=== PATIENT | male | born 1940 | race Caucasian/White ===

== ENCOUNTER 2020-02-20 16:59 | Emergency (ER) | payer MEDICARE, OTHER ==
[2020-02-20 18:29] VITALS: PULSE 65
[2020-02-20 18:39] VITALS: BP 156/92
--- NOTE | 2020-02-20 19:55 | EDM.PDOC ---
ED HPI GENERAL MEDICAL PROBLEM - General Chief Complaint: Abdominal Pain Stated Complaint: BLACK STOOL SEVRE STOMACHE PAINS Time Seen by Provider: 02/20/20 19:00 Source of Information: Reports: Patient, RN, RN Notes Reviewed History Limitations: Reports: No Limitations - History of Present Illness INITIAL COMMENTS - FREE TEXT/NARRATIVE: Patient presents to ER with complaint of abdominal pain for the past 2 weeks. Patient states he feels as though he is bloating and sharp pains from time to time in the epigastric region. Patient states on Thursday he began having black in stools. Patient states he has been using Pepto-Bismol for the bloating in the stomach, which causes him to have diarrhea from time to time. Patient denies any previous health problems although has had gastritis in the past. Patient denies any medications on a daily basis other than an Ocuvite. Patient denies any alcohol intake. Denies nausea or vomiting, chest pains or shortness of breath, fever or chills. Onset: Gradual Abdominal Pain Score (Numeric/FACES): 5 - Related Data Allergies Allergy/AdvReac Type Severity Reaction Status Date / Time No Known Allergies Allergy Verified 02/20/20 18:29 Home Meds: Home Meds Multivitamin [Multi-Day Vitamins] 1 tab PO DAILY 05/26/16 [History] Past Medical History HEENT History: Reports: Glaucoma, Impaired Vision Other HEENT History: wears glasses Cardiovascular History: Reports: High Cholesterol, Hypertension Respiratory History: Reports: None Gastrointestinal History: Reports: Diverticulosis, Helicobacter Pylori, PUD Other Gastrointestinal History: COLONIC HYPERPLASTIC POLYPS Genitourinary History: Reports: Renal Calculus Other Genitourinary History: ED Musculoskeletal History: Reports: Arthritis Neurological History: Reports: None Psychiatric History: Reports: None Endocrine/Metabolic History: Reports: None Hematologic History: Reports: None Immunologic History: Reports: None Oncologic (Cancer) History: Reports: None Dermatologic History: Reports: None - Infectious Disease History Infectious Disease History: Reports: Chicken Pox, Measles, Mumps - Past Surgical History Head Surgeries/Procedures: Reports: None HEENT Surgical History: Reports: None Male Surgical History: Reports: Lithotripsy ([facility]) Social & Family History - Family History HEENT: Reports: None Cardiac: Reports: DC Respiratory: Reports: None GI: Reports: None : Reports: None Musculoskeletal: Reports: None Neurological: Reports: CVA Endocrine/Metabolic: Reports: Diabetes, type II Hematologic: Reports: None Immunologic: Reports: None - Tobacco Use Smoking Status *Q: Never Smoker Second Hand Smoke Exposure: No - Caffeine Use Caffeine Use: Reports: Coffee, Soda - Recreational Drug Use Recreational Drug Use: No ED ROS GENERAL - Review of Systems Review Of Systems: Comprehensive ROS is negative, except as noted in HPI. ED EXAM, GI/ABD - Physical Exam Exam: See Below Exam Limited By: No Limitations General Appearance: Alert, WD/WN, No Apparent Distress Eyes: Bilateral: Normal Appearance, EOMI Ears: Normal External Exam, Hearing Grossly Normal Nose: Normal Inspection Throat/Mouth: Normal Inspection, Normal Voice, No Airway Compromise Head: Atraumatic, Normocephalic Neck: Normal Inspection, Supple, Non-Tender, Full Range of Motion Respiratory/Chest: No Respiratory Distress, Lungs Clear, Normal Breath Sounds, No Accessory Muscle Use, Chest Non-Tender Cardiovascular: Normal Peripheral Pulses, Regular Rate, Rhythm, No Edema, No Gallop, No JVD, No Murmur, No Rub GI/Abdominal Exam: Normal Bowel Sounds, Soft, No Organomegaly, No Distention, No Abnormal Bruit, No Mass, Pelvis Stable, Tender (Male) Exam: Deferred Rectal (Males) Exam: Deferred Back Exam: Normal Inspection, Full Range of Motion, NT Extremities: Normal Inspection, Normal Range of Motion, Non-Tender, Normal Capillary Refill, No Pedal Edema Neurological: Alert, Oriented, CN II-XII Intact, Normal Cognition, Normal Gait, Normal Reflexes, No Motor/Sensory Deficits Psychiatric: Normal Affect, Normal Mood Skin Exam: Warm, Dry, Intact, Normal Color, No Rash Lymphatic: No Adenopathy Course - Vital Signs Last Recorded V/S: Last Vital Signs Temp 97.8 F 02/20/20 18:20 Pulse 65 02/20/20 18:20 Resp 16 02/20/20 18:20 BP 156/92 H 02/20/20 18:39 Pulse Ox 97 02/20/20 18:20 - Orders/Labs/Meds Labs: Laboratory Tests 02/20/20 02/20/20 Range/Units 18:41 18:41 WBC 12.0 H (5.0-10.0) 10^3/uL RBC 4.95 (4.6-6.2) 10^6/uL Hgb 14.8 (14.0-18.0) g/dL Hct 43.3 (40.0-54.0) % MCV 87.5 (80-100) fL MCH 29.9 (27.0-34.0) pg MCHC 34.2 (33.0-35.0) g/dL Plt Count 217 (150-450) 10^3/uL Neut % (Auto) 62.6 (42.2-75.2) % Lymph % (Auto) 24.7 (20.5-50.1) % [place] % (Auto) 10.6 H (2-8) % Eos % (Auto) 1.8 (1.0-3.0) % Baso % (Auto) 0.3 (0.0-1.0) % Sodium 139 (136-145) mmol/L Potassium 4.3 (3.5-5.1) mmol/L Chloride 100 (98-107) mmol/L Carbon Dioxide 32 (21-32) mmol/L Anion Gap 11.3 (7-13) mEq/L BUN 22 H (7-18) mg/dL Creatinine 1.45 H (0.70-1.30) mg/dL Est Cr Clr Drug Dosing 33.92 mL/min Estimated GFR (MDRD) 47 BUN/Creatinine Ratio 15.2 (No establ ref range) Glucose 95 (74-99) mg/dL Calcium 9.8 (8.5-10.1) mg/dL Total Bilirubin 0.4 (0.2-1.0) mg/dL AST 23 (15-37) U/L ALT 35 (16-63) U/L Alkaline Phosphatase 57 (46-116) U/L Total Protein 7.1 (6.4-8.2) g/dL Albumin 3.6 (3.4-5.0) g/dL Globulin 3.5 Albumin/Globulin Ratio 1.0 Stool for Occult blood: POSITIVE Meds: Medications Discontinued Medications Generic Name Dose Route Start Last Admin Trade Name Freq PRN Reason Stop Dose Admin Pantoprazole Sodium 80 mg 02/20/20 20:04 02/20/20 20:26 Protonix Iv IVPUSH 02/20/20 20:05 80 mg .BOLUS ONE Administration - Re-Assessments/Exams Free Text/Narrative Re-Assessment/Exam: 02/20/20 21:15 Discussed patient case with Dr. Pierce who states the patient is stable to go home and follow up in the morning. Discussed the patient case with [facility] nurse, Bridgette, who states she will get him referred for GI immediately in the morning. Departure - Departure Time of Disposition: 20:21 Disposition: Home, Self-Care 01 Condition: Fair Clinical Impression: Gastritis Qualifiers: Gastritis type: unspecified gastritis Chronicity: acute Gastritis bleeding: with bleeding Qualified Code(s): K29.01 - Acute gastritis with bleeding - Discharge Information *PRESCRIPTION DRUG MONITORING PROGRAM REVIEWED*: No *COPY OF PRESCRIPTION DRUG MONITORING REPORT IN PATIENT JESSE: No Instructions: Gastritis, Adult, [id number] Forms: ED Department Discharge Additional Instructions: Follow-up with the [facility] tomorrow for a referral for EGD Rx: Protonix daily as directed Return to the ER with any worsening of symptoms Stop using Pepto Bismol Sepsis Event Note (ED) - Evaluation Sepsis Screening Result: No Definite Risk - Focused Exam Vital Signs: Vital Signs Temp Pulse Resp BP Pulse Ox 02/20/20 18:39 156/92 H 02/20/20 18:20 97.8 F 65 16 175/90 H 97
[2020-02-20 19:59] LABS: ANION GAP 11.3 mEq/L (7-13)
[2020-02-20] MEDS ORDERED: Pantoprazole 40 MG Vial IVPUSH ONE (20:04)
== END 2020-02-20 20:37 | disposition home or self-care (01) ==
LOC: DL.ED 16:59
DX: K29.01 Acute gastritis with bleeding (principal); I10 Essential (primary) hypertension
CPT/HCPCS: 36415; 80053; 82272; 85025; 96374; 99284; C9113

== ENCOUNTER 2020-04-16 11:19 | Day surgery (SDC) | payer OTHER, MEDICARE ==
[2020-04-16] MEDS ORDERED: Midazolam 1 MG/ML 2 ML SDV IV ONE ×5 (11:20→12:30)
[2020-04-16] MEDS ORDERED: Dextrose 5%-0.45% NaCl 1,000 ML IV SCH (12:15)
[2020-04-16] MEDS ORDERED: Benzocaine 20% Topical Spray UD MUCMEM ONE (12:27)
[2020-04-16 14:12] VITALS: BP 131/78; PULSE 63
--- NOTE | 2020-04-16 16:18 | OR ---
DATE: 04/16/2020 INTRODUCTION: This 79-year-old male has a history of peptic ulcer disease. He is here for followup for healing. His symptoms are much better. PROCEDURE IN DETAIL: After adequate preparation, the gastroscope was inserted into the esophagus. This was easily passed down to the distal esophagus. He has a small hiatal hernia but no evidence of distal esophagitis, stricture, or mass. The scope was advanced into the stomach. Both forward and retroflexed views were done and are normal except for some mild prepyloric gastritis. The scope was advanced through the pylorus into the duodenum, which appears to be normal. On withdrawal of the scope, biopsy of the prepyloric area was taken for H pylori analysis. No other abnormalities were noted. Air was suctioned from the stomach, and the scope removed. [facility] /[id number]
--- NOTE | 2020-04-16 17:16 | CN ---
SERVICE DATE: 04/16/2020 INTRODUCTION: This 79-year-old male has a history of supposedly a peptic ulcer/gastric ulcer disease. He has mostly been self-treated with this. His symptoms are mostly better now and he presents for evaluation of ulcer healing. His past medical history is otherwise unremarkable. He still actively works. ALLERGIES: He has allergies to possibly doxycycline and statins. CURRENT MEDICATIONS: Proton pump inhibitor. PRIOR SURGERY: None. FAMILY HISTORY/SOCIAL HISTORY: Normal. He does not smoke. PHYSICAL EXAMINATION: HEENT: Normal. Chest: Lungs are clear. Heart: Normal sinus rhythm. Abdomen: Soft. No masses. ASSESSMENT: History of peptic ulcer disease. PLAN: This patient had presented to the clinic with the expectations of an EGD today. He is n.p.o. and I have space open to fulfill this today. Since he [place] further away out of town, I think it would be reasonable just to proceed with an EGD today and to evaluate the healing of the ulcer or possible other problems. [facility] /[id number]
== END 2020-04-16 14:13 | disposition home or self-care (01) ==
LOC: DL.ENDO 11:19 → DL.GSCL 11:19 → EDSTATUS 11:30 → DL.ENDO 14:13
PROVIDERS: ATTEND Surgery
DX: K29.60 Other gastritis without bleeding (principal); K44.9 Diaphragmatic hernia without obstruction or gangrene; Z88.8 Allergy status to other drugs, medicaments and biological substances; Z01.812 Encounter for preprocedural laboratory examination; Z20.828 Contact with and (suspected) exposure to other viral communicable diseases
CPT/HCPCS: 43239; 87077; 87635; A9270; J2250; J7042; U0002

== ENCOUNTER 2023-04-27 16:54 | Emergency (ER) | payer OTHER ==
[2023-04-27] MEDS ORDERED: Sodium Chloride 0.9% 10 ML Syringe FLUSH PRN (17:05)
[2023-04-27 17:20] LABS: BASOPHILS PERCENT AUTO 0.2 % (0.0-1.0); EOSINOPHILS PERCENT AUTO 2.2 % (1.0-3.0); HEMATOCRIT 43.4 % (40.0-54.0); HEMOGLOBIN 14.6 g/dL (14.0-18.0); LYMPHOCYTES PERCENT AUTO 39.2 % (20.5-50.1); MEAN CORPUSCULAR HEMOGLOBIN 30.6 pg (27.0-34.0); MEAN CORPUSCULAR HGB CONC 33.6 g/dL (33.0-35.0); MONOCYTES PERCENT AUTO 8.1 % (2-8); NEUTROPHILS PERCENT AUTO 50.3 % (42.2-75.2); PLATELET COUNT,PLT 193 10^3/uL (150-450); RED BLOOD CELL COUNT 4.77 10^6/uL (4.6-6.2); WHITE BLOOD CELL COUNT,WBC 8.3 10^3/uL (5.0-10.0)
[2023-04-27 17:38] LABS: A/G RATIO 0.9; ALBUMIN 3.7 g/dL (3.4-5.0); ANION GAP 13.6 mEq/L (7-13); BILIRUBIN TOTAL 0.4 mg/dL (0.2-1.0); BUN/CREATININE RATIO 11.8 (No establ ref range); CALCIUM 8.8 mg/dL (8.5-10.1); CREATININE 1.44 mg/dL (0.70-1.30); EST CRCL DRUG DOSING (CG) 31.83 mL/min; POTASSIUM,K 4.6 mmol/L (3.5-5.1); PROTEIN TOTAL,TP 7.6 g/dL (6.4-8.2)
[2023-04-27] MEDS ORDERED: Sodium Chloride 0.9% 500 ML IV SCH (18:00)
[2023-04-27 19:28] VITALS: BP 133/77; PULSE 61
== END 2023-04-27 19:50 | disposition home or self-care (01) ==
LOC: DL.ED 16:54
DX: I49.3 Ventricular premature depolarization (principal); R42 Dizziness and giddiness; I10 Essential (primary) hypertension; E78.00 Pure hypercholesterolemia, unspecified; Z88.8 Allergy status to other drugs, medicaments and biological substances; Z79.899 Other long term (current) drug therapy
CPT/HCPCS: 36415; 70450; 71045; 80053; 84484; 85025; 93005; 93010; 96360; 99284; 99284-25; J3490; J7040

== ENCOUNTER 2024-05-04 19:28 | Inpatient (IN) | payer OTHER ==
[2024-05-04] MEDS ORDERED: Sodium Chloride 0.9% 10 ML Syringe FLUSH PRN (20:00)
[2024-05-04 20:17] LABS: BASOPHILS PERCENT AUTO 0.2 % (0.0-1.0); EOSINOPHILS PERCENT AUTO 1.2 % (1.0-3.0); HEMOGLOBIN 14.2 g/dL (14.0-18.0); LYMPHOCYTES PERCENT AUTO 29.2 % (20.5-50.1); MEAN CORPUSCULAR HEMOGLOBIN 29.9 pg (27.0-34.0); MEAN CORPUSCULAR VOLUME 90.5 fL (80-100); MONOCYTES PERCENT AUTO 9.8 % (2-8); NEUTROPHILS PERCENT AUTO 59.6 % (42.2-75.2); PLATELET COUNT,PLT 261 10^3/uL (150-450); RED BLOOD CELL COUNT 4.75 10^6/uL (4.6-6.2); WHITE BLOOD CELL COUNT,WBC 13.5 10^3/uL (5.0-10.0)
[2024-05-04 20:35] LABS: BILIRUBIN,URINE NEGATIVE (NEGATIVE); COLOR,URINE YELLOW (YELLOW); GLUCOSE,URINE NEGATIVE (NEGATIVE); KETONES,URINE NEGATIVE (NEGATIVE); LEUKOCYTE ESTERASE,URINE TRACE (NEGATIVE); NITRITE,URINE NEGATIVE (NEGATIVE); OCCULT BLOOD,URINE TRACE-INTACT (NEGATIVE); PROTEIN,URINE NEGATIVE (NEGATIVE); UROBILINOGEN,URINE 0.2 mg/dL (0.2-1.0)
[2024-05-04 20:36] LABS: INR 0.9 (0.9-1.2); PROTHROMBIN TIME 9.3 SEC (9.0-12.0); PTT,PARTIAL THROMBOPLSTIN TIME 28.9 SEC (22.0-34.0)
[2024-05-04 20:40] LABS: APPEARANCE,URINE SLIGHTLY CLOUDY (CLEAR)
[2024-05-04 20:42] LABS: LACTIC ACID 1.8 mmol/L (0.4-2.0)
[2024-05-04 20:48] LABS: A/G RATIO 0.9; ALBUMIN 3.8 g/dL (3.4-5.0); ANION GAP 9.7 mEq/L (7-13); BILIRUBIN TOTAL 0.3 mg/dL (0.2-1.0); BUN/CREATININE RATIO 14.3 (No establ ref range); CREATININE 1.33 mg/dL (0.70-1.30); EST CRCL DRUG DOSING (CG) 33.87 mL/min; MAGNESIUM 2.6 mg/dL (1.8-2.4); POTASSIUM,K 4.7 mmol/L (3.5-5.1); TSH ULTRASENSITIVE 1.51 uIU/mL (0.36-3.74)
[2024-05-04 20:48] LABS: BACTERIA,URINE FEW /HPF (0-FEW/HPF); EPITHELIAL CELLS,URINE FEW /HPF (NOT SEEN); MUCUS,URINE FEW /LPF (NOT SEEN); RBC,URINE 0-5 /HPF (0-5)
[2024-05-04] MEDS: Iopamidol 612 MG/ML 100 ML Bottle IVPUSH ONE (21:05)
[2024-05-04] MEDS: Sodium Chloride 0.9% 1,000 ML IV ONE ×2 (21:12→22:38)
[2024-05-04] MEDS ORDERED: Naloxone 2 MG/2 ML Syringe IVPUSH PRN (22:28)
[2024-05-04] MEDS: fentaNYL 100 MCG/2 ML SDV IVPUSH ONE (23:02)
[2024-05-04] MEDS ORDERED: Ondansetron 4 MG/2 ML SDV IVPUSH PRN (23:13)
[2024-05-04] MEDS ORDERED: Metoclopramide 10 MG/2 ML SDV IV PRN (23:13)
[2024-05-04] MEDS ORDERED: Polyethylene Glycol 3350 Powder 17 GM Packet PO PRN (23:13)
[2024-05-04] MEDS ORDERED: Melatonin 3 MG Tab PO PRN (23:13)
[2024-05-04] MEDS ORDERED: Magnesium Hydroxide 400 MG/5 ML Susp 30 ML Cup PO PRN (23:13)
[2024-05-04] MEDS ORDERED: Albuterol/Ipratropium 3.0-0.5 MG/3 ML Neb Soln NEB PRN (23:13)
[2024-05-04] MEDS ORDERED: Sennosides/Docusate Sodium 50-8.6 MG Tab PO PRN (23:13)
[2024-05-04] MEDS: Scopalamine 1mg/3day Transdermal Patch TOP ONE (23:30)
[2024-05-04 23:34] LABS: CHOLESTEROL HDL 42 mg/dL (40-59); CHOLESTEROL LDL CALCULATED 103 mg/dL (0-100); CHOLESTEROL TOTAL 198 mg/dL (0-199); LACTATE DEHYDROGENASE,LDH 155 U/L (85-227); TRIGLYCERIDES 267 mg/dL (0-149)
[2024-05-04] MEDS ORDERED: Metoprolol Tartrate 5 MG/5 ML SDV IVPUSH PRN (23:35)
[2024-05-04] MEDS ORDERED: hydrALAZINE 20 MG/ML SDV IVPUSH PRN (23:35)
[2024-05-05] MEDS: HYDROmorphone 1 MG/ML Syringe IVPUSH PRN (01:57)
[2024-05-05] MEDS: fentaNYL 250 MCG/5 ML SDV IM ONE (02:05)
[2024-05-05 06:10] LABS: BASOPHILS PERCENT AUTO 0.3 % (0.0-1.0); EOSINOPHILS PERCENT AUTO 1.9 % (1.0-3.0); HEMATOCRIT 37.8 % (40.0-54.0); HEMOGLOBIN 12.2 g/dL (14.0-18.0); LYMPHOCYTES PERCENT AUTO 39.7 % (20.5-50.1); MEAN CORPUSCULAR HEMOGLOBIN 29.8 pg (27.0-34.0); MEAN CORPUSCULAR HGB CONC 32.3 g/dL (33.0-35.0); MEAN CORPUSCULAR VOLUME 92.2 fL (80-100); NEUTROPHILS PERCENT AUTO 49.1 % (42.2-75.2); PLATELET COUNT,PLT 200 10^3/uL (150-450); WHITE BLOOD CELL COUNT,WBC 10.6 10^3/uL (5.0-10.0)
[2024-05-05 06:32] LABS: ALANINE AMINOTRANSFERASE,ALT 43 U/L (16-63); ALBUMIN 2.9 g/dL (3.4-5.0); ALKALINE PHOSPHATASE 41 U/L (46-116); ANION GAP 9.9 mEq/L (7-13); ASPARTATE AMNIOTRANSFERASE,AST 32 U/L (15-37); BILIRUBIN TOTAL 0.4 mg/dL (0.2-1.0); BLOOD UREA NITROGEN,BUN 16 mg/dL (7-18); BUN/CREATININE RATIO 13.4 (No establ ref range); CALCIUM 8.8 mg/dL (8.5-10.1); CARBON DIOXIDE,CO2 29 mmol/L (21-32); CHLORIDE,CL 104 mmol/L (98-107); CREATININE 1.19 mg/dL (0.70-1.30); EST CRCL DRUG DOSING (CG) 37.85 mL/min; GLUCOSE RANDOM 92 mg/dL (70-99); LIPASE 110 U/L (16-77); MAGNESIUM 2.3 mg/dL (1.8-2.4); POTASSIUM,K 4.9 mmol/L (3.5-5.1); PROTEIN TOTAL,TP 6.4 g/dL (6.4-8.2); SODIUM,NA 138 mmol/L (136-145)
[2024-05-05 06:46] LABS: A/G RATIO 0.83; C-REACTIVE PROTEIN < 0.50 ng/dL (<=0.50); ESTIMATED GFR 61 mL/min (>=60)
[2024-05-05] MEDS ORDERED: Omeprazole 20 MG Cap.CR PO PRN (15:48)
[2024-05-05] MEDS: Acetaminophen 325 MG Tab PO PRN (20:16)
[2024-05-06 06:30] LABS: BASOPHILS PERCENT AUTO 0.3 % (0.0-1.0); EOSINOPHILS PERCENT AUTO 3.1 % (1.0-3.0); HEMOGLOBIN 13.3 g/dL (14.0-18.0); LYMPHOCYTES PERCENT AUTO 40.5 % (20.5-50.1); MEAN CORPUSCULAR HEMOGLOBIN 29.9 pg (27.0-34.0); MEAN CORPUSCULAR HGB CONC 32.4 g/dL (33.0-35.0); MEAN CORPUSCULAR VOLUME 92.1 fL (80-100); MONOCYTES PERCENT AUTO 9.4 % (2-8); NEUTROPHILS PERCENT AUTO 46.7 % (42.2-75.2); PLATELET COUNT,PLT 228 10^3/uL (150-450); RED BLOOD CELL COUNT 4.45 10^6/uL (4.6-6.2); WHITE BLOOD CELL COUNT,WBC 7.3 10^3/uL (5.0-10.0)
[2024-05-06 06:48] LABS: ALBUMIN 3.5 g/dL (3.4-5.0); ANION GAP 10.4 mEq/L (7-13); BILIRUBIN TOTAL 0.4 mg/dL (0.2-1.0); BUN/CREATININE RATIO 12.6 (No establ ref range); C-REACTIVE PROTEIN 1.01 ng/dL (<=0.50); CREATININE 1.27 mg/dL (0.70-1.30); EST CRCL DRUG DOSING (CG) 35.47 mL/min; MAGNESIUM 2.4 mg/dL (1.8-2.4); POTASSIUM,K 4.4 mmol/L (3.5-5.1); PROTEIN TOTAL,TP 7.1 g/dL (6.4-8.2)
[2024-05-06] MEDS: Metoprolol Succinate 25 MG Tab.ER PO SCH (09:01)
[2024-05-06] MEDS: Pravastatin 20 MG Tab PO SCH (09:02)
[2024-05-06] MEDS: Finasteride 5 MG Tab PO SCH (09:02)
[2024-05-06] MEDS: Acetaminophen/oxyCODONE 325-5 MG Tab PO PRN (10:00)
[2024-05-06 16:06] VITALS: BP 137/74; PULSE 55
== END 2024-05-06 18:25 | disposition home or self-care (01) | DRG 439 ==
LOC: DL.ED 19:28 → DL.MS 22:52 → OBSVTOIN 05-05 15:42
PROVIDERS: ADMIT Internal Medicine; ATTEND Internal Medicine
DX: K85.90 Acute pancreatitis without necrosis or infection, unspecified (principal); N17.9 Acute kidney failure, unspecified; E78.00 Pure hypercholesterolemia, unspecified; I10 Essential (primary) hypertension; M19.90 Unspecified osteoarthritis, unspecified site; D72.829 Elevated white blood cell count, unspecified; I25.10 Atherosclerotic heart disease of native coronary artery without angina pectoris; Z88.1 Allergy status to other antibiotic agents; G47.33 Obstructive sleep apnea (adult) (pediatric); E66.9 Obesity, unspecified; R73.9 Hyperglycemia, unspecified; E83.42 Hypomagnesemia; E78.1 Pure hyperglyceridemia; E83.51 Hypocalcemia; H54.7 Unspecified visual loss; K40.20 Bilateral inguinal hernia, without obstruction or gangrene, not specified as recurrent; Z88.8 Allergy status to other drugs, medicaments and biological substances; Z95.1 Presence of aortocoronary bypass graft; Z79.82 Long term (current) use of aspirin; Z79.899 Other long term (current) drug therapy; Z87.19 Personal history of other diseases of the digestive system; Z87.442 Personal history of urinary calculi; Z98.890 Other specified postprocedural states; Z68.29 Body mass index [BMI] 29.0-29.9, adult
CPT/HCPCS: 36415; 71260; 74177; 80053; 80061; 81001; 82272; 83605; 83615; 83690; 83735; 84443; 84484; 85025; 85610; 85730; 86140; 87040; 87086; 93005; 93010; 96360; 96361; 96374; 96375; 96376; 99223; 99233; 99239; 99285; 99285-25; A9270-GY; G0378; J1171; J3010; J7030; Q9967